=== PATIENT | male | born 1940 | race Caucasian/White ===

== ENCOUNTER 2024-12-22 01:11 | Inpatient (IN) ==
[2024-12-22 01:30] LABS: Hemoglobin 10.3 g/dl (14.0-18.0); Mean Corpuscular Hemoglobin 29.3 pg (25.0-34.0); Mean Corpuscular Hgb Conc 32.2 g/dL (32.0-36.0); Mean Corpuscular Volume 91.2 fL (80.0-100.0); Mean Platelet Volume 9.6 fL (9.4-12.4); Platelet Count 213 K/uL (130-400); RDW Coefficient of Variation 13.2 % (11.5-14.5); RDW Standard Deviation 44.5 fL (36.4-46.3); Red Blood Count 3.51 M/uL (4.70-6.10); White Blood Count 3.84 K/ul (4.8-10.8)
[2024-12-22 01:41] LABS: D Dimer 300 ug/L FEU (0-500); Prothrombin Time 10.9 Seconds (9.0-12.0)
[2024-12-22 01:51] LABS: ALC (manual) 1.69 K/uL (1.2-3.4); ANC (manual) 1.77 K/uL (1.4-6.5); Albumin Level 3.8 gm/dl (3.4-5.0); Basophils # (manual) 0.04 K/uL (0-0.2); Basophils % (manual) 1 %; Bilirubin,Total 0.3 mg/dl (0.2-1.0); Calcium 8.5 mg/dl (8.6-10.3); Eosinophils # (manual) 0.08 K/uL (0-0.50); Eosinophils % (manual) 2 %; Lymphocytes # (manual) 1.69 K/uL (1.2-3.4); Lymphocytes % (manual) 44 %; Magnesium 1.7 mg/dl (1.7-2.4); Monocytes # (manual) 0.27 K/uL (0.11-0.59); Monocytes % (manual) 7 %; Neutrophils # (manual) 1.77 K/uL (1.40-6.50); Neutrophils % (manual) 46 %; Potassium 4.2 mmol/L (3.5-5.1); RBC Morphology Unremarkable
[2024-12-22 01:57] LABS: Albumin Globulin Ratio 1.2 (0.9-2); BUN Creatinine Ratio 14.3 (10-20); Creatinine Clr Calc Pharmacy 39.1 ml/min; Globulin 3.3 gm/dl (2.5-4.0); Total Protein 7.1 gm/dl (6.0-8.3)
[2024-12-22 02:01] LABS: Troponin I High Sensitivity 5.7 pg/ml (0-20)
[2024-12-22 02:10] LABS: Thyroid Stimulating Hormone 3.14 uIu/ml (0.300-4.500)
[2024-12-22] MEDS: PANTOprazole 40 MG/10 ML SYR IV ONE (02:17)
[2024-12-22] MEDS: SODIUM CHLORIDE 0.9% 1,000 ML IV SCH (02:17)
[2024-12-22] MEDS: MAGNESIUM SULFATE / D5W 1 GM/100 ML BAG IV STA (02:17)
--- NOTE | 2024-12-22 02:39 | XRay Report ---
EXAM: XR chest 1V portable CLINICAL HISTORY: cp TECHNIQUE: Radiograph of chest was acquired. COMPARISON: none FINDINGS: Blunting of bilateral costophrenic angle. Area of consolidation in right lower zone. The cardiomediastinal silhouette is within normal limits. No acute osseous abnormality. IMPRESSION: 1. Blunting of bilateral costophrenic angle- Findings suggestive of pleural effusion. 2. Area of consolidation in right lower zone. Findings suggestive of infective etiology / changes of pulmonary edema. Suggested clinical/lab correlation/further evaluation with CT chest. Electronically signed by Jose Cruz Liang 12-22-2024 02:38 AM
--- NOTE | 2024-12-22 03:22 | Emergency Department Note ---
Impression & Plan Chest pain, Pleural effusion, Dyspnea ED Provider Note ED Provider Note NAME: MEMO MEJIA AGE:84 SEX: Male : 1940 ARRIVES VIA: EMS INFORMANT: Patient ED PROVIDER(s): Vale Luke DO CHIEF COMPLAINT: Chest pain HPI: This is an 84-year-old male brought in by EMS due to concern for chest pain. Patient states has been having intermittent chest pain for many months. He states that is typically central and slightly left-sided. He states it does not radiate into the upper extremities, back, or neck. He states he does have accompanying difficulty breathing. He denies abdominal pain, vomiting, numbness or tingling, dizziness, fevers, or URI symptoms. He denies any recent heartburn/GERD. He denies any recent leg swelling. He denies any travel, sick contacts, or change in medications. He denies any history of heart or lung problems. PAST MEDICAL HISTORY:See Below PAST SURGICAL HISTORY:See Below FAMILY HISTORY:See Below SOCIAL HISTORY:See Below HOME MEDICATIONS:See Below ALLERGIES:See Below VITALS:See Below PHYSICAL EXAMINATION: GENERAL: alert, well appearing, well nourished, no distress, non-toxic EYE EXAM: normal conjunctiva, PERRL and EOM's grossly intact OROPHARYNX: no exudate, no erythema, lips, buccal mucosa, and tongue normal and mucous membranes are moist NECK: supple, no nuchal rigidity, no adenopathy, non-tender LUNGS: Clear to auscultation. Normal chest wall mechanics, no w/r/r HEART: no murmurs, S1 normal and S2 normal ABDOMEN: abdomen soft, non-tender, normo-active bowel sounds, no masses, no rebound or guarding. BACK: Back is symmetrical on inspection and there is no deformity, no midline tenderness, no CVA tenderness. SKIN: no rashes, petechiae, orbruising UPPER EXTREMITIES: upper extremities are grossly normal. FROM, nml pulses b/l. LOWER EXTREMITIES: No pitting edema. FROM, nml pulses b/l. Erythema noted to the distal last of the right great toe NEURO EXAM: Normal sensorium, cranial nerves II-XII grossly intact, normal speech, no facial droop,nogross weakness of arms, no gross weakness of legs. Gross sensation intact. No ataxia. Vital Signs: reviewed and remarkable Differential Diagnosis: acute coronary syndrome, pericarditis, pulmonary embolus, aortic dissection, pneumonia, pneumothorax, musculoskeletal pain, shingles, GERD, GI bleed, as well as others were considered MEDICAL DECISION MAKING: This is an 84 yo male who presents to the ER c/o chest pain and dyspnea. He was afebrile and VS stable on arrival. Labs drawn and sent, IV established, EKG and CXR performed and interpreted at bedside, and patient placed on telemetry. Given atypical cxr, patient sent for CT chest additionally and nasal swab for viral panel obtained. Procal added additionally. Mild leukopenia noted and anemia. Troponin negative and dimer negative. Patient denies any pulmonary hx. No recent illness and viral panel negative. Given unclear etiology of pleural effusion seen on CT with symptoms reported we discussed further inpatient evaluation, patient and son in agreement. Case discussed with hospitalist team for additional evaluation and mgmt. Consultation(s): 0508: Discussed with Dr. Saleh, [facility] hospitalist team, for additional evaluation and management. ER Treatment Provided: See below 0445: Discussed with son now at bedside. Diagnostics Interpreted By Me: -ECG: Normal sinus at 79, normal axis, normal intervals, no acute ST/T wave changes -Cardiac Monitoring: An order was placed for continuous cardiac monitoring. The monitor shows a rate of 72 with normal sinus rhythm. -Laboratory studies: As stated above and show below. -Imaging studies: X-ray Chest: A single view study of the chest was reviewed and was negative for cardiomegaly, focal infiltrate, effusion, pulmonary edema, or wide mediastinum. Triage Nursing Note Reviewed Prior/Outside Records Reviewed Past Med/Surg History Problem List (Updated 12/24/24 @ 03:48 by Vale Luke DO) Dyspnea (Acute) Pneumothorax, right Loculated pleural effusion Osteoarthritis Iron deficiency anemia Pleuritic chest pain Bilateral pleural effusion Pleural effusion (Acute) Chest pain (Acute) No known health problems (Acute) Alcohol intoxication (Acute) Alcohol intoxication (Acute) Change in mental status (Acute) Social History Smoking Status: Never smoker Hx Alcohol Use: No Hx Substance Use: No Preferred Language: Mongolian Communication Ability: Effective 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 Current Living Situation: [facility] Feels Safe at Home: Yes Assistive Devices: Walker and Wheelchair Allergies Allergies Allergy/AdvReac Type Severity Reaction Status Date / Time aspirin Allergy Unknown ON Verified 12/22/24 01:57 [facility] MED LIST Home Meds Home Medications Medication Instructions Recorded Confirmed acetaminophen 325 mg tablet 650 mg PO Q4H PRN PAIN/FEVER 12/22/24 12/22/24 (Tylenol) cyanocobalamin (vitamin B-12) 1,000 mcg PO DAILY 12/22/24 12/22/24 1,000 mcg tablet (Vitamin B-12) folic acid 1 mg tablet 1 mg PO DAILY 12/22/24 12/22/24 loperamide 2 mg capsule 2 mg PO Q8H PRN Diarrhea 12/22/24 12/22/24 magnesium hydroxide 400 mg/5 mL 30 ml PO DAILY PRN Constipation 12/22/24 12/22/24 oral suspension (Milk of Magnesia) mirtazapine 7.5 mg tablet 7.5 mg PO HS 12/22/24 12/22/24 sennosides 8.6 mg-docusate sodium 1 tab-cap PO 3XWK 12/22/24 12/22/24 50 mg tablet (Senexon-S) sertraline 100 mg tablet 100 mg PO DAILY 12/22/24 12/22/24 sertraline 50 mg tablet 50 mg PO DAILY 12/22/24 12/22/24 Results & Data (ED) Vital Signs Vital Signs - 24 hr 12/22/24 01:18 12/22/24 01:20 12/22/24 01:21 Temperature 37 C Temperature Source Oral Pulse Rate 77 70 78 Pulse Rate from SpO2 Sensor 75 Respiratory Rate 19 19 Respiratory Effort / Characteristics Non-Labored Spontaneous Respiratory Depth Normal Respiratory Pattern Regular Blood Pressure 127/67 124/64 Blood Pressure Mean 87 84 Pulse Oximetry 95 95 Oxygen Delivery Method Room Air Room Air Sepsis Recent Fever Within 48 Hours No Sepsis New/Unexplained Change in Mental Status No Sepsis Action Taken by Nursing No Action Required 12/22/24 01:30 12/22/24 02:00 12/22/24 02:30 Temperature Temperature Source Pulse Rate 76 77 80 Pulse Rate from SpO2 Sensor 74 79 Respiratory Rate 20 19 17 Respiratory Effort / Characteristics Respiratory Depth Respiratory Pattern Blood Pressure 127/54 L 120/56 L 118/61 Blood Pressure Mean 86 80 83 Pulse Oximetry 93 94 90 Oxygen Delivery Method Room Air Room Air Room Air Sepsis Recent Fever Within 48 Hours Sepsis New/Unexplained Change in Mental Status Sepsis Action Taken by Nursing 12/22/24 03:12 12/22/24 03:45 12/22/24 04:00 Temperature Temperature Source Pulse Rate 69 83 74 Pulse Rate from SpO2 Sensor 71 85 Respiratory Rate 20 18 18 Respiratory Effort / Characteristics Respiratory Depth Respiratory Pattern Blood Pressure 131/88 120/59 L Blood Pressure Mean 102 75 Pulse Oximetry 91 93 93 Oxygen Delivery Method Room Air Room Air Room Air Sepsis Recent Fever Within 48 Hours Sepsis New/Unexplained Change in Mental Status Sepsis Action Taken by Nursing 12/22/24 04:30 12/22/24 05:00 12/22/24 05:13 Temperature Temperature Source Pulse Rate 75 72 72 Pulse Rate from SpO2 Sensor 77 72 Respiratory Rate 18 18 Respiratory Effort / Characteristics Respiratory Depth Respiratory Pattern Blood Pressure 118/58 L 126/61 Blood Pressure Mean 78 82 Pulse Oximetry 93 93 Oxygen Delivery Method Room Air Room Air Sepsis Recent Fever Within 48 Hours Sepsis New/Unexplained Change in Mental Status Sepsis Action Taken by Nursing 12/22/24 07:00 12/22/24 07:00 Temperature Temperature Source Pulse Rate 74 Pulse Rate from SpO2 Sensor 74 Respiratory Rate 24 Respiratory Effort / Characteristics Respiratory Depth Respiratory Pattern Blood Pressure 133/63 Blood Pressure Mean 95 Pulse Oximetry 94 Oxygen Delivery Method Sepsis Recent Fever Within 48 Hours Sepsis New/Unexplained Change in Mental Status Sepsis Action Taken by Nursing Laboratory Data 12/23/24 06:00 12/23/24 06:00 Lab Results 12/22/24 12/22/24 12/22/24 Range/Units 01:17 03:54 03:57 WBC 3.84 L (4.8-10.8) K/ul RBC 3.51 L (4.70-6.10) M/uL Hgb 10.3 L (14.0-18.0) g/dl Hct 32.0 L (42.0-52.0) % MCV 91.2 (80.0-100.0) fL MCH 29.3 (25.0-34.0) pg MCHC 32.2 (32.0-36.0) g/dL RDW Std Deviation 44.5 (36.4-46.3) fL RDW Coeff of Kyleigh 13.2 (11.5-14.5) % Plt Count 213 (130-400) K/uL MPV 9.6 (9.4-12.4) fL Neutrophils % (Manual) 46 % Lymphocytes % (Manual) 44 % Monocytes % (Manual) 7 % Eosinophils % (Manual) 2 % Basophils % (Manual) 1 % Neutrophils # (Manual) 1.77 (1.40-6.50) K/uL Total Absolute Neuts 1.77 (1.4-6.5) K/uL Lymphocytes # (Manual) 1.69 (1.2-3.4) K/uL Total Abs Lymphocytes 1.69 (1.2-3.4) K/uL Monocytes # (Manual) 0.27 (0.11-0.59) K/uL Eosinophils # (Manual) 0.08 (0-0.50) K/uL Basophils # (Manual) 0.04 (0-0.2) K/uL RBC Morphology Unremarkable Peripher Smr Path Cons PT 10.9 (9.0-12.0) Seconds INR 1.0 (0.9-1.1) D-Dimer 300 (0-500) ug/L FEU Sodium 136 (136-145) mmol/L Potassium 4.2 (3.5-5.1) mmol/L Chloride 103 (98-107) mmol/L Carbon Dioxide 29 (21-32) mmol/L Anion Gap 4 (3-11) BUN 15 (6-23) mg/dl Creatinine 1.05 (0.6-1.4) mg/dl Est Cr Clr Drug Dosing 39.1 ml/min eGFR 69.56 BUN/Creatinine Ratio 14.3 (10-20) Glucose 94 (70-99(Fasting)) mg/dl Calcium 8.5 L (8.6-10.3) mg/dl Magnesium 1.7 (1.7-2.4) mg/dl Total Bilirubin 0.3 (0.2-1.0) mg/dl AST 15 (13-39) U/L ALT 7 (7-52) U/L Alkaline Phosphatase 82 (34-104) U/L Troponin I High Sens 5.7 3.8 (0-20) pg/ml B-Natriuretic Peptide 30 (0-100) pg/ml Total Protein 7.1 (6.0-8.3) gm/dl Albumin 3.8 (3.4-5.0) gm/dl Globulin 3.3 (2.5-4.0) gm/dl Albumin/Globulin Ratio 1.2 (0.9-2) Lipase 16 (11-82) U/L Vitamin B12 1436 H (180-914) pg/ml Folate > 22.30 (>5.38) ng/ml Procalcitonin 0.02 (0-0.5) ng/ml TSH 3.140 (0.300-4.500) uIu/ml Ethyl Alcohol mg/dL < 10.0 (<10.0) mg/dl Adenovirus (PCR) Not Detected (NotDetected) B. pertussis DNA (PCR) Not Detected (NotDetected) B.parapertussis DNA PCR Not Detected (NotDetected) C. pneumoniae DNA (PCR) Not Detected (NotDetected) Coronavirus OC43 (PCR) Not Detected (NotDetected) Coronavirus HKU1 (PCR) Not Detected (NotDetected) Coronavirus 229E (PCR) Not Detected (NotDetected) SARS-CoV-2 (PCR) Not Detected (NotDetected) Coronavirus NL63 (PCR) Not Detected (NotDetected) Human Metapneumovir PCR Not Detected (NotDetected) Influenza Type A (PCR) Not Detected (NotDetected) Influenza Type B (PCR) Not Detected (NotDetected) M. pneumoniae (PCR) Not Detected (NotDetected) Parainfluenza 1 (PCR) Not Detected (NotDetected) Parainfluenza 2 (PCR) Not Detected (NotDetected) Parainfluenza 3 (PCR) Not Detected (NotDetected) Parainfluenza 4 (PCR) Not Detected (NotDetected) RSV (PCR) Not Detected (NotDetected) Entero/Rhino (PCR) Not Detected (NotDetected) Administered Medications Acetaminophen (Acetaminophen 325 Mg Tab) 650 mg PO Q4H PRN PRN Reason: Pain or Fever Stop: 01/21/25 09:31 Last Admin: 12/22/24 11:06 Dose: 650 mg Documented By: ALEJANDRA Cyanocobalamin (Cyanocobalamin (B-12) 500 Mcg Tablet) 1,000 mcg PO DAILY AMANDA Stop: 01/21/25 09:31 Last Admin: 12/23/24 07:19 Dose: 1,000 mcg Documented By: Admin: 12/22/24 11:07 Dose: 1,000 mcg Documented By: ALEJANDRA Folic Acid (Folic Acid 1 Mg Tab) 1 mg PO DAILY AMANDA Stop: 01/21/25 09:31 Last Admin: 12/23/24 07:20 Dose: 1 mg Documented By: Admin: 12/22/24 11:08 Dose: 1 mg Documented By: ALEJANDRA Heparin Sodium (Porcine) (Heparin Sod 5,000 Unit/0.5 Ml Vial) 5,000 units SQ Q8 AMANDA Stop: 01/21/25 13:59 Last Admin: 12/24/24 02:03 Dose: 5,000 units Documented By: Admin: 12/23/24 13:10 Dose: 5,000 units Documented By: Admin: 12/23/24 05:44 Dose: 5,000 units Documented By: Admin: 12/22/24 20:09 Dose: 5,000 units Documented By: Admin: 12/22/24 13:06 Dose: Not Given Documented By: ALEJANDRA Ampicillin Sodium/Sulbactam Sodium (Unasyn) 3,000 mg in 100 mls @ 200 mls/hr IV Q6H AMANDA Stop: 12/27/24 09:59 Last Infusion: 12/24/24 00:07 Dose: Infused Documented By: Admin: 12/23/24 22:56 Dose: 200 mls/hr Documented By: Infusion: 12/23/24 17:43 Dose: Infused Documented By: Admin: 12/23/24 16:59 Dose: 200 mls/hr Documented By: Infusion: 12/23/24 10:47 Dose: Infused Documented By: Admin: 12/23/24 10:06 Dose: 200 mls/hr Documented By: Infusion: 12/23/24 04:56 Dose: Infused Documented By: Admin: 12/23/24 04:20 Dose: 200 mls/hr Documented By: Infusion: 12/22/24 20:39 Dose: Infused Documented By: Admin: 12/22/24 20:09 Dose: 200 mls/hr Documented By: Infusion: 12/22/24 16:54 Dose: Infused Documented By: Admin: 12/22/24 16:10 Dose: 200 mls/hr Documented By: Infusion: 12/22/24 11:47 Dose: Infused Documented By: Admin: 12/22/24 11:07 Dose: 200 mls/hr Documented By: ALEJANDRA Mirtazapine (Mirtazapine Tab 15 Mg Tab) 7.5 mg PO HS AMANDA Stop: 01/21/25 20:59 Last Admin: 12/23/24 22:57 Dose: 7.5 mg Documented By: Admin: 12/22/24 20:09 Dose: 7.5 mg Documented By: LAUREN Senna/Docusate Sodium (Docusate Sodium/Senna 50/8.6mg Tab) 1 tab PO MoWeFr@0900 AMANDA Stop: 01/21/25 09:31 Last Admin: 12/22/24 11:08 Dose: Not Given Documented By: ALEJANDRA Sertraline HCl (Sertraline Hcl 100 Mg Tablet) 100 mg PO DAILY AMANDA Stop: 01/21/25 09:31 Last Admin: 12/23/24 07:20 Dose: 100 mg Documented By: Admin: 12/22/24 11:08 Dose: 100 mg Documented By: ALEJANDRA Sertraline HCl (Sertraline Hcl 50 Mg Tablet) 50 mg PO DAILY AMANDA Stop: 01/21/25 09:31 Last Admin: 12/23/24 07:20 Dose: 50 mg Documented By: Admin: 12/22/24 11:08 Dose: 50 mg Documented By: ALEJANDRA Discontinued Medications Sodium Chloride (Nss) 1,000 mls @ 125 mls/hr IV .Q8H AMANDA Stop: 12/23/24 01:29 Last Admin: 12/22/24 09:35 Dose: Not Given Documented By: Infusion: 12/22/24 09:32 Dose: Infused Documented By: Admin: 12/22/24 02:17 Dose: 125 mls/hr Documented By: TYSON Pantoprazole Sodium (Protonix) 40 mg in 10 mls @ 5 mls/min IV NOW ONE Stop: 12/22/24 01:21 Last Admin: 12/22/24 02:17 Dose: 5 mls/min Documented By: TYSON Magnesium Sulfate/Dextrose (Magnesium Sulfate / D5w) 1 gm in 100 mls @ 100 mls/hr IV NOW STA Stop: 12/22/24 02:56 Last Infusion: 12/22/24 03:25 Dose: Infused Documented By: Admin: 12/22/24 02:17 Dose: 100 mls/hr Documented By: TYSON Ioversol (Optiray 320 100ml) 93 ml IV ONCE ONE Stop: 12/22/24 03:35 Last Admin: 12/22/24 03:34 Dose: 93 ml Documented By: ARJUN Ioversol (Optiray 320 100ml) 94 ml IV ONCE ONE Stop: 12/22/24 13:53 Last Admin: 12/22/24 13:53 Dose: 94 ml Documented By: RAFAL Imaging Data Radiologist's Impression: Chest X-Ray 12/22/24 01:20 EXAM: XR chest 1V portable CLINICAL HISTORY: cp TECHNIQUE: Radiograph of chest was acquired. COMPARISON: none FINDINGS: Blunting of bilateral costophrenic angle. Area of consolidation in right lower zone. The cardiomediastinal silhouette is within normal limits. No acute osseous abnormality. IMPRESSION: 1. Blunting of bilateral costophrenic angle- Findings suggestive of pleural effusion. 2. Area of consolidation in right lower zone. Findings suggestive of infective etiology / changes of pulmonary edema. Suggested clinical/lab correlation/further evaluation with CT chest. Electronically signed by Jose Cruz Liang 12-22-2024 02:[address] 12/22/24 03:22 EXAM: CT chest diagnostic w con CLINICAL HISTORY: abn cxr, chest pain TECHNIQUE: Contiguous axial images were obtained from the neck base through the upper abdomen following intravenous administration of contrast material. If IV contrast material had not been administered, the likelihood of detecting abnormalities relevant to the patient's condition would have been substantially decreased. In addition, sagittal and coronal reconstructions were performed. CT scan was performed according to ALARA (as low as reasonable achievable). COMPARISON: None. FINDINGS: Mild to moderate right sided pleural effusion (likely loculated) with intrafissural extension with passive subsegmental collapse of right lower lobe is seen. Minimal left sided pleural effusion with passive subsegmental collapse of left lower lobe. Multiple tiny scattered nodules (2-4 mm sized)are noted involving both lungs Few right paratracheal and perihilar lymph node are seen. Rest of lungs are clear The central airways are patent. No pneumothorax is seen. No axillary, hilar, or mediastinal adenopathy is identified. The visualized thyroid is unremarkable. The heart, aorta, and pulmonary arteries are of normal size and configuration. No pericardial effusion is identified. Imaged portions of the upper abdomen are unremarkable. No aggressive appearing osseous lesions are identified. IMPRESSION: 1. Mild to moderate right sided pleural effusion (likely loculated) with intrafissural extension with passive subsegmental collapse of right lower lobe is seen. 2. Minimal left sided pleural effusion with passive subsegmental collapse of left lower lobe. 3. Few tiny scattered nodules (2-4 mm sized)are noted involving both lungs- follow up suggested 4. Few right paratracheal and perihilar lymph node are seen. Electronically signed by Jose Cruz Liang 12-22-2024 04:29 AM Discharge Plan Visit Data Chief Complaint: Cardiac Assessment Stated Complaint: CHEST PAIN, WORSENS WHEN WORRIED ABOUT ED Provider: Vale Luke Discharge Problem: Chest pain, Pleural effusion, Dyspnea Patient Disposition: Admitted As Inpatient Condition: Good Discharge Instructions Interventions: ED Discharge Assessment Last Done: 12/22/24 13:47
[2024-12-22] MEDS: OPTIRAY 320 100ml IV ONE ×2 (03:34→13:53)
--- NOTE | 2024-12-22 04:29 | CT Scan Report ---
EXAM: CT chest diagnostic w con CLINICAL HISTORY: abn cxr, chest pain TECHNIQUE: Contiguous axial images were obtained from the neck base through the upper abdomen following intravenous administration of contrast material. If IV contrast material had not been administered, the likelihood of detecting abnormalities relevant to the patient's condition would have been substantially decreased. In addition, sagittal and coronal reconstructions were performed. CT scan was performed according to ALARA (as low as reasonable achievable). COMPARISON: None. FINDINGS: Mild to moderate right sided pleural effusion (likely loculated) with intrafissural extension with passive subsegmental collapse of right lower lobe is seen. Minimal left sided pleural effusion with passive subsegmental collapse of left lower lobe. Multiple tiny scattered nodules (2-4 mm sized)are noted involving both lungs Few right paratracheal and perihilar lymph node are seen. Rest of lungs are clear The central airways are patent. No pneumothorax is seen. No axillary, hilar, or mediastinal adenopathy is identified. The visualized thyroid is unremarkable. The heart, aorta, and pulmonary arteries are of normal size and configuration. No pericardial effusion is identified. Imaged portions of the upper abdomen are unremarkable. No aggressive appearing osseous lesions are identified. IMPRESSION: 1. Mild to moderate right sided pleural effusion (likely loculated) with intrafissural extension with passive subsegmental collapse of right lower lobe is seen. 2. Minimal left sided pleural effusion with passive subsegmental collapse of left lower lobe. 3. Few tiny scattered nodules (2-4 mm sized)are noted involving both lungs- follow up suggested 4. Few right paratracheal and perihilar lymph node are seen. Electronically signed by Jose Cruz Liang 12-22-2024 04:29 AM
[2024-12-22 04:54] LABS: Adenovirus PCR Not Detected (NotDetected); Bordetella parapertussis PCR Not Detected (NotDetected); Bordetella pertussis PCR Not Detected (NotDetected); Chlamydia pneumoniae PCR Not Detected (NotDetected); Coronavirus 229E PCR Not Detected (NotDetected); Coronavirus CoV-2 (COVID19)PCR Not Detected (NotDetected); Coronavirus HKU1 PCR Not Detected (NotDetected); Coronavirus NL63 PCR Not Detected (NotDetected); Coronavirus OC43PCR Not Detected (NotDetected); Human Metapneumovirus PCR Not Detected (NotDetected); Influenza A PCR Not Detected (NotDetected); Influenza B PCR Not Detected (NotDetected); Mycoplasma pneumoniae PCR Not Detected (NotDetected); Parainfluenza Virus 1 PCR Not Detected (NotDetected); Parainfluenza Virus 2 PCR Not Detected (NotDetected); Parainfluenza Virus 3 PCR Not Detected (NotDetected); Parainfluenza Virus 4 PCR Not Detected (NotDetected); Respiratory Syncytial VirusPCR Not Detected (NotDetected); Rhinovirus/Enterovirus PCR Not Detected (NotDetected)
--- NOTE | 2024-12-22 06:12 | History & Physical Report ---
Date of Service December 22, 2024 Assessment & Plan (1) Chest pain: Plan: 84-year-old male with past medical history significant for depression who lives at [facility] and is wheelchair-bound for several years was brought in because of complaint of chest pain and shortness of breath. Currently patient seems poor historian. He says he has pain in the abdomen. Says it is hurting to speak. Complains of shortness of breath. Complains of pain in the right big toe. Could tell his name. Knows that he is in the [place]. Could not tell current month. Could tell his age. Patient states he is thirsty and wants to drink. But difficult to get history from the patient as saying that it is hurting to talk and could not get much history from the patient. Son left to home but able to call him. As per son patient complaining of chest pain for las t couple of days. And also shortness of breath. No fevers. No nausea. Normal bowel and bladder movements. As per son no history of heart disease. No history of kidney disease. No history of high blood pressure or diabetes. No dementia as per son.Currently patient hemodynamics are okay. Chest pain EKG no acute findings. 2 sets of troponin negative. D-dimer negative. Will follow serial cardiac enzymes and echo Monitor on telemetry Cardiac consult Right pleural effusion Shortness of breath Respiratory BioFire negative CT chest shows mild to moderate right-sided pleural effusion likely loculated with intrafissural extension with passive subsegmental collapse of the right lower lobe. Minimal left sided pleural effusion with subsegmental collapse of the left lower lobe. 2-4 moderate-sized nodules seen Empiric Unasyn Will follow echo Pulmonary consult for further recommendation Abdominal pain LFTs okay, lipase okay Will follow CT of the pelvis Anemia and leukopenia Do not have baseline labs Will check stool for Hemoccult Iron studies, vitamin B12 folate levels Peripheral smear Follow repeat labs right big toe pain will follow xray and uric acid levels Depression Continue home meds DVT prophylaxis SCDs for now Disposition Telemetry Full code. History of Present Illness Chief Complaint: Chest pain and shortness of breath Primary Care Provider: Nathan Valdez 84-year-old male with past medical history significant for depression who lives at [facility] and is wheelchair-bound for several years was brought in because of complaint of chest pain and shortness of breath. Currently patient seems poor historian. He says he has pain in the abdomen. Says it is hurting to speak. Complains of shortness of breath. Complains of pain in the right big toe. Could tell his name. Knows that he is in the [place]. Could not tell current month. Could tell his age. Patient states he is thirsty and wants to drink. But difficult to get history from the patient as saying that it is hurting to talk and could not get much history from the patient. Son left to home but able to call him. As per son patient complaining of chest pain for last couple of days. And also shortness of breath. No fevers. No nausea. Normal bowel and bladder movements. As per son no history of heart disease. No history of kidney disease. No history of high blood pressure or diabetes. No dementia as per son.Currently patient hemodynamics are okay. Past medical history. As mentioned above Past surgical history. None as per son. Social history. No smoking. History drink alcohol in the past but currently drinks once a week. Family history. Mother had colon cancer. Uncle had prostate cancer. Allergies Allergy/AdvReac Type Severity Reaction Status Date / Time aspirin Allergy Unknown ON Verified 12/22/24 01:57 [facility] LIST Home Medications Medication Instructions Recorded Confirmed Type acetaminophen 325 mg tablet 650 mg PO Q4H PRN PAIN/FEVER 12/22/24 12/22/24 History (Tylenol) cyanocobalamin (vitamin B-12) 1,000 mcg PO DAILY 12/22/24 12/22/24 History 1,000 mcg tablet (Vitamin B-12) folic acid 1 mg tablet 1 mg PO DAILY 12/22/24 12/22/24 History loperamide 2 mg capsule 2 mg PO Q8H PRN Diarrhea 12/22/24 12/22/24 History magnesium hydroxide 400 mg/5 mL 30 ml PO DAILY PRN Constipation 12/22/24 12/22/24 History oral suspension (Milk of Magnesia) mirtazapine 7.5 mg tablet 7.5 mg PO HS 12/22/24 12/22/24 History sennosides 8.6 mg-docusate sodium 1 tab-cap PO 3XWK 12/22/24 12/22/24 History 50 mg tablet (Senexon-S) sertraline 100 mg tablet 100 mg PO DAILY 12/22/24 12/22/24 History sertraline 50 mg tablet 50 mg PO DAILY 12/22/24 12/22/24 History Past Med/Surg History Problem List (Updated 12/22/24 @ 05:32 by Vale Luke, DO) Pleural effusion (Acute) Chest pain (Acute) No known health problems (Acute) Alcohol intoxication (Acute) Alcohol intoxication (Acute) Change in mental status (Acute) Social History Preferred Language: Yi Feels Safe at Home: Yes Review of Systems Review of Systems: Other Poor historian. States hurting to speak .. Physical Exam Physical Exam: General- Not in acute distress. Head- atraumatic Eyes- PERRL. ENT- oropharynx clear Neck- supple, no JVD. Lungs- clear to auscultation no wheezing. mild bibasilar crackles Heart- regular rhythm; no murmur, no gallop. Abdomen- normal bowel sounds, soft, diffuse discomfort, no distension Extremities- no pretibial edema, right bid toe mild erythema Neuro- alert, oriented x 2; PERRL, no facial palsy; no dysarthria; Results & Data Results & Data Vital Signs (Past 12 Hours) Vital Signs Temp Pulse Resp BP Pulse Ox O2 Del Method 12/22/24 05:13 72 12/22/24 05:00 72 18 126/61 93 Room Air 12/22/24 04:30 75 18 118/58 L 93 Room Air 12/22/24 04:00 74 18 120/59 L 93 Room Air 12/22/24 03:45 83 18 131/88 93 Room Air 12/22/24 03:12 69 20 91 Room Air 12/22/24 02:30 80 17 118/61 90 Room Air 12/22/24 02:00 77 19 120/56 L 94 Room Air 12/22/24 01:30 76 20 127/54 L 93 Room Air 12/22/24 01:21 78 19 124/64 95 Room Air 12/22/24 01:20 37 C 70 19 127/67 95 Room Air 12/22/24 01:18 77 Diagnostic Findings Laboratory Results WBC 3.84 K/ul (4.8-10.8) L 12/22/24 01:17 RBC 3.51 M/uL (4.70-6.10) L 12/22/24 01:17 Hgb 10.3 g/dl (14.0-18.0) L 12/22/24 01:17 Hct 32.0 % (42.0-52.0) L 12/22/24 01:17 MCV 91.2 fL (80.0-100.0) 12/22/24 01:17 MCH 29.3 pg (25.0-34.0) 12/22/24 01:17 MCHC 32.2 g/dL (32.0-36.0) 12/22/24 01:17 RDW Std Deviation 44.5 fL (36.4-46.3) 12/22/24 01: RDW Coeff of Kyleigh 13.2 % (11.5-14.5) 12/22/24 01:17 Plt Count 213 K/uL (130-400) 12/22/24 01:17 MPV 9.6 fL (9.4-12.4) 12/22/24 01:17 Neutrophils % (Manual) 46 % 12/22/24 01:17 Lymphocytes % (Manual) 44 % 12/22/24 01:17 Monocytes % (Manual) 7 % 12/22/24 01:17 Eosinophils % (Manual) 2 % 12/22/24 01:17 Basophils % (Manual) 1 % 12/22/24 01:17 Neutrophils # (Manual) 1.77 K/uL (1.40-6.50) 12/22/24 01:17 Total Absolute Neuts 1.77 K/uL (1.4-6.5) 12/22/24 01:17 Lymphocytes # (Manual) 1.69 K/uL (1.2-3.4) 12/22/24 01:17 Total Abs Lymphocytes 1.69 K/uL (1.2-3.4) 12/22/24 01:17 Monocytes # (Manual) 0.27 K/uL (0.11-0.59) 12/22/24 01:17 Eosinophils # (Manual) 0.08 K/uL (0-0.50) 12/22/24 01:17 Basophils # (Manual) 0.04 K/uL (0-0.2) 12/22/24 01:17 RBC Morphology Unremarkable 12/22/24 01:17 PT 10.9 Seconds (9.0-12.0) 12/22/24 01:17 INR 1.0 (0.9-1.1) 12/22/24 01:17 D-Dimer 300 ug/L FEU (0-500) 12/22/24 01:17 Sodium 136 mmol/L (136-145) 12/22/24 01:17 Potassium 4.2 mmol/L (3.5-5.1) 12/22/24 01:17 Chloride 103 mmol/L (98-107) 12/22/24 01:17 Carbon Dioxide 29 mmol/L (21-32) 12/22/24 01:17 Anion Gap 4 (3-11) 12/22/24 01:17 BUN 15 mg/dl (6-23) 12/22/24 01:17 Creatinine 1.05 mg/dl (0.6-1.4) 12/22/24 01:17 Est Cr Clr Drug Dosing 39.1 ml/min 12/22/24 01:17 eGFR 69.56 12/22/24 01:17 BUN/Creatinine Ratio 14.3 (10-20) 12/22/24 01:17 Glucose 94 mg/dl (70-99(Fasting)) 12/22/24 01:17 Calcium 8.5 mg/dl (8.6-10.3) L 12/22/24 01:17 Magnesium 1.7 mg/dl (1.7-2.4) 12/22/24 01:17 Total Bilirubin 0.3 mg/dl (0.2-1.0) 12/22/24 01:17 AST 15 U/L (13-39) 12/22/24 01:17 ALT 7 U/L (7-52) 12/22/24 01:17 Alkaline Phosphatase 82 U/L (34-104) 12/22/24 01:17 Troponin I High Sens 3.8 pg/ml (0-20) 12/22/24 03:54 B-Natriuretic Peptide 30 pg/ml (0-100) 12/22/24 01:17 Total Protein 7.1 gm/dl (6.0-8.3) 12/22/24 01:17 Albumin 3.8 gm/dl (3.4-5.0) 12/22/24 01:17 Globulin 3.3 gm/dl (2.5-4.0) 12/22/24 01:17 Albumin/Globulin Ratio 1.2 (0.9-2) 12/22/24 01:17 Lipase 16 U/L (11-82) 12/22/24 01:17 Procalcitonin 0.02 ng/ml (0-0.5) 12/22/24 03:54 TSH 3.140 uIu/ml (0.300-4.500) 12/22/24 01:17 Ethyl Alcohol mg/dL < 10.0 mg/dl (<10.0) 12/22/24 01:17 Adenovirus (PCR) Not Detected (NotDetected) 12/22/24 03:57 B. pertussis DNA (PCR) Not Detected (NotDetected) 12/22/24 03:57 B.parapertussis DNA PCR Not Detected (NotDetected) 12/22/24 03:57 C. pneumoniae DNA (PCR) Not Detected (NotDetected) 12/22/24 03:57 Coronavirus OC43 (PCR) Not Detected (NotDetected) 12/22/24 03:57 Coronavirus HKU1 (PCR) Not Detected (NotDetected) 12/22/24 03:57 Coronavirus 229E (PCR) Not Detected (NotDetected) 12/22/24 03:57 SARS-CoV-2 (PCR) Not Detected (NotDetected) 12/22/24 03:57 Coronavirus NL63 (PCR) Not Detected (NotDetected) 12/22/24 03:57 Human Metapneumovir PCR Not Detected (NotDetected) 12/22/24 03:57 Influenza Type A (PCR) Not Detected (NotDetected) 12/22/24 03:57 Influenza Type B (PCR) Not Detected (NotDetected) 12/22/24 03:57 M. pneumoniae (PCR) Not Detected (NotDetected) 12/22/24 03:57 Parainfluenza 1 (PCR) Not Detected (NotDetected) 12/22/24 03:57 Parainfluenza 2 (PCR) Not Detected (NotDetected) 12/22/24 03:57 Parainfluenza 3 (PCR) Not Detected (NotDetected) 12/22/24 03:57 Parainfluenza 4 (PCR) Not Detected (NotDetected) 12/22/24 03:57 RSV (PCR) Not Detected (NotDetected) 12/22/24 03:57 Entero/Rhino (PCR) Not Detected (NotDetected) 12/22/24 03:57 Impressions Chest X-Ray 12/22/24 01:20 EXAM: XR chest 1V portable CLINICAL HISTORY: cp TECHNIQUE: Radiograph of chest was acquired. COMPARISON: none FINDINGS: Blunting of bilateral costophrenic angle. Area of consolidation in right lower zone. The cardiomediastinal silhouette is within normal limits. No acute osseous abnormality. IMPRESSION: 1. Blunting of bilateral costophrenic angle- Findings suggestive of pleural effusion. 2. Area of consolidation in right lower zone. Findings suggestive of infective etiology / changes of pulmonary edema. Suggested clinical/lab correlation/further evaluation with CT chest. Electronically signed by Jose Cruz Liang 12-22-2024 02:[address] 12/22/24 03:22 EXAM: CT chest diagnostic w con CLINICAL HISTORY: abn cxr, chest pain TECHNIQUE: Contiguous axial images were obtained from the neck base through the upper abdomen following intravenous administration of contrast material. If IV contrast material had not been administered, the likelihood of detecting abnormalities relevant to the patient's condition would have been substantially decreased. In addition, sagittal and coronal reconstructions were performed. CT scan was performed according to ALARA (as low as reasonable achievable). COMPARISON: None. FINDINGS: Mild to moderate right sided pleural effusion (likely loculated) with intrafissural extension with passive subsegmental collapse of right lower lobe is seen. Minimal left sided pleural effusion with passive subsegmental collapse of left lower lobe. Multiple tiny scattered nodules (2-4 mm sized)are noted involving both lungs Few right paratracheal and perihilar lymph node are seen. Rest of lungs are clear The central airways are patent. No pneumothorax is seen. No axillary, hilar, or mediastinal adenopathy is identified. The visualized thyroid is unremarkable. The heart, aorta, and pulmonary arteries are of normal size and configuration. No pericardial effusion is identified. Imaged portions of the upper abdomen are unremarkable. No aggressive appearing osseous lesions are identified. IMPRESSION: 1. Mild to moderate right sided pleural effusion (likely loculated) with intrafissural extension with passive subsegmental collapse of right lower lobe is seen. 2. Minimal left sided pleural effusion with passive subsegmental collapse of left lower lobe. 3. Few tiny scattered nodules (2-4 mm sized)are noted involving both lungs- follow up suggested 4. Few right paratracheal and perihilar lymph node are seen. Electronically signed by Jose Cruz Liang 12-22-2024 04:29 AM ECG Additional Comments: ECG. Normal sinus rhythm with PACs at the rate of 79. Nonspecific ST abnormalities. QTc 458 Code Status & VTE Plan VTE Prophylaxis Plan VTE Prophylaxis will be ordered: Yes
--- NOTE | 2024-12-22 08:21 | Electrocardiogram Report ---
Test Reason : Blood Pressure : */* mmHG Vent. Rate : 79 BPM Atrial Rate : 79 BPM P-R Int : 128 ms QRS Dur : 86 ms QT Int : 400 ms P-R-T Axes : -10 -18 31 degrees QTcB Int : 458 ms Sinus rhythm with Premature atrial complexes Nonspecific ST abnormality Abnormal ECG When compared with ECG of 02-Apr-2014 19:55, QRS duration has decreased Nonspecific T wave abnormality now evident in Inferior leads T wave amplitude has decreased in Anterior leads Confirmed by Parminder Watson ([id number]) on 12/22/2024 8:21:06 AM Referred By: [facility] Confirmed By: Parminder Watson
[2024-12-22] MEDS ORDERED: MAGNESIUM HYDROXIDE SUSP 30 ML UDC PO PRN (09:32)
[2024-12-22] MEDS ORDERED: NITROGLYCERIN SL 0.4 MG/TAB TAB SL PRN (09:32)
[2024-12-22] MEDS ORDERED: ACETAMINOPHEN 325 MG TAB PO PRN (09:32)
[2024-12-22] MEDS ORDERED: POLYETHYLENE (MIRALAX) 17 GM PACK PO PRN (09:32)
--- NOTE | 2024-12-22 10:43 | XRay Report ---
XR foot RT min 3V routine CLINICAL HISTORY: right big toe pain COMPARISON: None FINDINGS: 4 views of the right foot demonstrate to a pronounced osteopenia. There is moderate osteoa rthritis at the first metatarsophalangeal joint. There are hammertoe deformities at digits 2, 3, and 4. There is no aggressive bone lesion or periosteal reaction identified. IMPRESSION: Severe osteopenia. Degenerative change at the first metatarsophalangeal joint. ACT 112: Negative or not required by law. Electronically signed by: Ainsley Cantu M.D. 12/22/2024 10:42 AM
[2024-12-22 11:06] LABS: Folate (Folic Acid),Ser orPlas > 22.30 ng/ml (>5.38)
[2024-12-22] MEDS: ACETAMINOPHEN 325 MG TAB PO PRN (11:06)
[2024-12-22 11:07] LABS: Vitamin B12 1436 pg/ml (180-914)
[2024-12-22] MEDS: CYANOCOBALAMIN (B-12) 500 MCG TABLET PO SCH (11:07)
[2024-12-22] MEDS: AMPICILLIN/SULBACTAM SOD 3,000 MG/100 ML BAG IV SCH (11:07)
[2024-12-22] MEDS: DOCUSATE SODIUM/SENNA 50/8.6MG TAB PO SCH (11:08)
[2024-12-22] MEDS: SERTRALINE HCL 100 MG TABLET PO SCH (11:08)
[2024-12-22] MEDS: FOLIC ACID 1 MG TAB PO SCH (11:08)
[2024-12-22] MEDS: SERTRALINE HCL 50 MG TABLET PO SCH (11:08)
[2024-12-22 11:45] LABS: Troponin I High Sensitivity 6.8 pg/ml (0-20)
[2024-12-22 11:47] LABS: Uric Acid 3.9 mg/dl (2.6-7.2)
[2024-12-22] MEDS: HEPARIN SOD 5,000 UNIT/0.5 ML VIAL SQ SCH (13:06)
--- NOTE | 2024-12-22 13:09 | Pulmonary Consultation ---
Date of Consultation December 22, 2024 Assessment & Plan (1) Loculated pleural effusion: Possible infectious/malignant in origin. Will leave the chest tube in today and repeat a chest x-ray tomorrow in light of the patient's small basilar pneumothorax which may be a pneumo ex vacuo. Continue chest tube to suction at -20 cm of water. Follow-up pleural fluid cytologies, cell counts and cultures. Continue Unasyn. BNP unremarkable. Echocardiogram reviewed with grade 1 diastolic dysfunction and a normal LVEF. Doubtful of CHF. (2) Pleuritic chest pain: Possibly related to pleural effusion. (3) Pneumothorax, right: Pneumothorax appeared status post right pigtail catheter placement. Possible pneumo ex vacuo. Plan Pulmonary will continue to follow. Thank you for the consult. History of Present Illness Reason for Consultation: Right pleural effusion Attending Physician: Froilan Singer DO History of Present Illness 84-year-old male who is a poor historian who presented from an assisted living facility due to shortness of breath and chest discomfort. Patient endorses pleurisy. He denies any shortness of breath at present. He denies any cough, fevers, chills or night sweats. Labs largely unremarkable including BNP. P atient currently on Unasyn for possible pneumonia. Chest CT obtained on admission revealed mild to moderate right-sided pleural effusion which was loculated and subsegmental collapse of the right lower lobe. Minimal left-sided pleural effusion and a few tiny scattered nodules. Patient underwent pigtail chest tube insertion in the right pleural effusion is found to have likely pneumo ex vacuo. Pleural fluid studies pending. pH normal. Allergies Allergy/AdvReac Type Severity Reaction Status Date / Time aspirin Allergy Unknown ON Verified 12/22/24 01:[facility] Home Medications Medication Instructions Recorded Confirmed Type acetaminophen 325 mg tablet 650 mg PO Q4H PRN PAIN/FEVER 12/22/24 12/22/24 History (Tylenol) cyanocobalamin (vitamin B-12) 1,000 mcg PO DAILY 12/22/24 12/22/24 History 1,000 mcg tablet (Vitamin B-12) folic acid 1 mg tablet 1 mg PO DAILY 12/22/24 12/22/24 History loperamide 2 mg capsule 2 mg PO Q8H PRN Diarrhea 12/22/24 12/22/24 History magnesium hydroxide 400 mg/5 mL 30 ml PO DAILY PRN Constipation 12/22/24 12/22/24 History oral suspension (Milk of Magnesia) mirtazapine 7.5 mg tablet 7.5 mg PO HS 12/22/24 12/22/24 History sennosides 8.6 mg-docusate sodium 1 tab-cap PO 3XWK 12/22/24 12/22/24 History 50 mg tablet (Senexon-S) sertraline 100 mg tablet 100 mg PO DAILY 12/22/24 12/22/24 History sertraline 50 mg tablet 50 mg PO DAILY 12/22/24 12/22/24 History Patient History Social History Smoking Status: Never smoker Hx Alcohol Use: No Hx Substance Use: No Preferred Language: Spanish Communication Ability: Effective Fireproof Door Maker Required: No Current Living Situation: Senior Living Feels Safe at Home: Yes Assistive Devices: Walker and Wheelchair Review of Systems Review of Systems: All systems reviewed & are unremarkable except as noted in HPI & below Physical Exam Constitutional: WD/WN, vitals as above + thin; no acute distress Neck: normal visual inspection Respiratory: no labored breathing Auscultation: + diminished lung sounds (bases b/l ) Cardiovascular: Rate/Rhythm: regular rate and regular rhythm Heart Sounds: normal S1 and normal S2; no murmur Vessels: no JVD Extremities: no edema Gastrointestinal (Abdomen): normal bowel sounds, soft, nontender, no hepatosplenomegaly Neurologic: PERRL, EOMI, accommodation nl, no face palsy, no dysarthria Psychiatric: A+Ox3, euthymic affect Results & Data Results & Data Vital Signs (Past 12 Hours) Vital Signs Temp Pulse Resp BP BP Pulse Ox O2 Del Method 12/22/24 11:32 67 12/22/24 09:45 20 156/73 H 95 Room Air 12/22/24 09:08 Room Air 12/22/24 08:30 137/70 12/22/24 08:30 74 15 94 12/22/24 08:00 135/62 12/22/24 08:00 73 24 93 12/22/24 07:36 74 16 94 12/22/24 07:30 134/63 12/22/24 07:21 76 20 92 12/22/24 07:00 133/63 12/22/24 07:00 133/63 12/22/24 07:00 74 24 94 12/22/24 05:13 72 12/22/24 05:00 72 18 126/61 93 Room Air 12/22/24 04:30 75 18 118/58 L 93 Room Air 12/22/24 04:00 74 18 120/59 L 93 Room Air 12/22/24 03:45 83 18 131/88 93 Room Air 12/22/24 03:12 69 20 91 Room Air 12/22/24 02:30 80 17 118/61 90 Room Air 12/22/24 02:00 77 19 120/56 L 94 Room Air 12/22/24 01:30 76 20 127/54 L 93 Room Air 12/22/24 01:21 78 19 124/64 95 Room Air 12/22/24 01:20 37 C 70 19 127/67 95 Room Air 12/22/24 01:18 77 PG Care Time/CCT Total # of Minutes Spent Total Time Spent with Patient: Total time spent is greater than 50% in coordination of care (as documented) at patient's floor/unit and/or counseling patient: Coding Level of Care Code 83408 INT INP/OBS CARE 255MIN Diagnoses Loculated pleural effusion J90 Pleuritic chest pain R07.81 Pneumothorax, right J93.9
--- NOTE | 2024-12-22 14:03 | XRay Report ---
XR chest 1V not portable CLINICAL HISTORY: s/p rt pleural pigtail placement COMPARISON STUDY: 12/22/2024 FINDINGS: Stable mild cardiomegaly with mild pulmonary vascular congestion. Stable hazy opacity at th e left base with blunting of the left costophrenic angle. There is an interval small bore pleural cat heter at the right base. There is mild residual stranding at the right lung base, improved. There is a faint vertical possible pleural line laterally at the right lung base, artifact versus trace right basilar pneumothorax. Stable pleural calcification in the apices. IMPRESSION: Artifact versus trace right basilar pneumothorax. If pneumothorax is present, it is like ly ex vacuo due to evacuation of the pleural fluid with failure of the abnormal right lung base to co mpletely reexpand. Suggest follow-up chest x-ray in the morning. ACT 112: Negative or not required by law. Electronically signed by: Delonte Zuniga M.D. 12/22/2024 2:01 PM
--- NOTE | 2024-12-22 14:13 | CT Scan Report ---
ABDOMEN AND PELVIS CT WITH IV CONTRAST CT DOSE: 794.93 mGy.cm HISTORY: abdominal pain TECHNIQUE: Multiaxial CT images of the abdomen and pelvis were performed following the IV administrat ion of 90 cc of Optiray, A dose lowering technique was utilized adhering to the principles of ALARA. COMPARISON STUDY: Chest x-ray and chest CT earlier today. FINDINGS: There is a very small right basilar pneumothorax with interval near resolution of the pleur al effusion, likely ex vacuo due to removal of the pleural fluid and inability of the partially atele ctatic right lower lobe to completely reexpand. There is a small left pleural effusion with mild lisa cent dependent atelectasis at the left lower lobe. ABDOMEN: Liver, gallbladder, spleen, pancreas, and adrenal glands are unremarkable. Kidneys show no h ydronephrosis. There are scattered atherosclerotic calcifications. No abdominal aortic aneurysm. Pelvis: There is contrast within the renal collecting systems, ureters, and urinary bladder. Urinary bladder is mildly distended. Prostate is mildly enlarged. There is moderate sigmoid diverticulosis. N o acute diverticulitis. There is moderate retained stool. No bowel inflammation or obstruction. No fr ee fluid, free air, or abscess. No enlarged adenopathy. Osseous structures: There is osteopenia. There are mild degenerative changes at the lumbar spine and hips. No acute osseous finding seen. IMPRESSION: 1. No acute findings at the abdomen or pelvis. 2. Very small right basilar pneumothorax, likely ex vacuo as described. Recommend follow-up chest x-r ay in the morning. 3. Otherwise as described. ACT 112: Negative or not required by law. The above report was generated using voice recognition software. It may contain grammatical, syntax o r spelling errors. Electronically signed by: Delonte Zuniga M.D. 12/22/2024 2:11 PM
--- NOTE | 2024-12-22 14:23 | Hospitalist Progress Note ---
Date of Service December 22, 2024 Assessment & Plan (1) Bilateral pleural effusion: (2) Pleuritic chest pain: (3) Iron deficiency anemia: (4) Osteoarthritis: Plan Patient presented to the emergency room with complaints of chest pain, generalized weakness and shortness of breath. Noted to have pleural effusions. Discussed with pulmonary, recommending thoracentesis with pigtail catheter through IR Communication with IR performed thoracentesis, additional studies pending Empiric antibiotics Communication with cardiology, will follow-up on their recommendations Communication with patient's son and granddaughter at bedside aware of plans for thoracentesis and ongoing testing Updated patient's findings of foot x-ray and reassured him that its osteoarthritis Recheck chest x-ray in a.m. Admission and Anticipated Discharge Date Admission Date: December 22, 2024 Subjective No acute complaints since admission. Physical Exam Physical Exam: Constitutional: Alert, nontoxic HEENT: Mucous membranes moist. Lungs: Decreased breath sounds, dullness at bases CV: S1-S2, regular Abdomen: Soft, nontender, nondistended Extremities: No significant edema Neuro: No focal deficits Psych: Cooperative, normal mood Results & Data Results & Data Vital Signs (Past 12 Hours) Vital Signs Pulse Resp BP BP Pulse Ox O2 Del Method 12/22/24 13:47 Room Air 12/22/24 13:11 Room Air 12/22/24 11:32 67 12/22/24 09:45 20 156/73 H 95 Room Air 12/22/24 09:08 Room Air 12/22/24 08:30 137/70 12/22/24 08:30 74 15 94 12/22/24 08:00 135/62 12/22/24 08:00 73 24 93 12/22/24 07:36 74 16 94 12/22/24 07:30 134/63 12/22/24 07:21 76 20 92 12/22/24 07:00 133/63 12/22/24 07:00 133/63 12/22/24 07:00 74 24 94 12/22/24 05:13 72 12/22/24 05:00 72 18 126/61 93 Room Air 12/22/24 04:30 75 18 118/58 L 93 Room Air 12/22/24 04:00 74 18 120/59 L 93 Room Air 12/22/24 03:45 83 18 131/88 93 Room Air 12/22/24 03:12 69 20 91 Room Air 12/22/24 02:30 80 17 118/61 90 Room Air Diagnostic Findings Reviewed imaging, laboratory and diagnostic studies. Pertinent findings as below. Iron studies reviewed Vitamin B12, folate normal ranges TSH 3.14 Reviewed echocardiogram: Normal ejection fraction [address] of the abdomen pelvis reviewed, no acute intra-abdominal findings, small pneumothorax from thoracentesis Reviewed foot x-ray, osteoarthritis Critical Care Time Prolonged Care Time 40
--- NOTE | 2024-12-22 14:37 | Cardiology Consultation ---
Date of Consultation December 22, 2024 Assessment & Plan (1) Pleuritic chest pain: (2) Pleural effusion: Plan Patient admitted with SOB, atypical pleuritic chest pain likely pleurisy. EKG demonstrating NSR without ischemic changes HS troponin negative x 3 since admission. Echo with preserved LVEF, no wall motion abnormalities. Small pericardial effusion. Diagnosed with b/l pleural effusions and concerns for empyema per pulm. Plans for thoracentesis with pigtail catheter placement later today. Case discussed with Dr. Tinoco I spent a total of 45 minutes on the date of service in preparation, delivery, and documentation of the care provided to this patient, excluding any time spent in the performance of separately billed services. Terese Cronin PA-C Department of Cardiology, [facility] This chart was completed in part utilizing Speech Voice Recognition Software. Grammatical errors, random word insertions, pronoun errors, and incomplete sentences are an occasional consequence of this system due to software limitations, ambient noise, and hardware issues. Any formal questions or concerns about the content, text, or information contained within the body of this dictation should be directly addressed to the provider for clarification. Supervising Physician Co-Signing Physician Notes Attending attestation: Case reviewed with the advanced practitioner. I have personally performed a history and physical examination on the patient. I have reviewed the advanced practitioner's documentation on the date of service referenced in note, and I agree with, and take responsibility for the plan of care. EKG without ischemic changes. Serial troponins negative. Echocardiogram with stable findings. Since patient had been seen by From this morning patient had undergone interval right pleural catheter placement. Please call with questions or concerns. I spent a total of 20 minutes coordinating, documenting, and providing care for this patient excluding time spent in the performance of separately billed services or time spent by another provider. Estevan Tinoco DO History of Present Illness Reason for Consultation: SOB; atypical chest pain Requesting Physician: Augusto Hospitalist Attending Physician: Dr Tinoco History of Present Illness Patient is an 84 year old male who presented to [facility] with complaints of SOB, and sharp stabbing chest/epigastric pain, worsening over the last few weeks. Patient lives part of the time in [place] and part of the time in [place]. He is a rather poor historian. He does not know his outpatient medications. He denies history of cardiovascular issues. No prior diagnosis of CAD, DC, CHF, or arrhythmia. Upon arrival to ER, ekg demonstrated NSR without acute ischemic changes. HS troponin negative x2. Found to have abnormal chest xray with b/l pleural effusions and possible collapse of the right lower lung. Pulm in to see patient at time of cardio consult, and concerns for possible empyema. Considering placement of pigtail catheter. At time of consult, patient reports ongoing SOB with pleuritic chest pain. Pain located left lower sternal border/epigastric region. Worse with deep inspiration. Allergies Allergy/AdvReac Type Severity Reaction Status Date / Time aspirin Allergy Unknown ON Verified 12/22/24 01:57 [facility] Home Medications Medication Instructions Recorded Confirmed Type acetaminophen 325 mg tablet 650 mg PO Q4H PRN PAIN/FEVER 12/22/24 12/22/24 History (Tylenol) cyanocobalamin (vitamin B-12) 1,000 mcg PO DAILY 12/22/24 12/22/24 History 1,000 mcg tablet (Vitamin B-12) folic acid 1 mg tablet 1 mg PO DAILY 12/22/24 12/22/24 History loperamide 2 mg capsule 2 mg PO Q8H PRN Diarrhea 12/22/24 12/22/24 History magnesium hydroxide 400 mg/5 mL 30 ml PO DAILY PRN Constipation 12/22/24 12/22/24 History oral suspension (Milk of Magnesia) mirtazapine 7.5 mg tablet 7.5 mg PO HS 12/22/24 12/22/24 History sennosides 8.6 mg-docusate sodium 1 tab-cap PO 3XWK 12/22/24 12/22/24 History 50 mg tablet (Senexon-S) sertraline 100 mg tablet 100 mg PO DAILY 12/22/24 12/22/24 History sertraline 50 mg tablet 50 mg PO DAILY 12/22/24 12/22/24 History Patient History Social History Smoking Status: Never smoker Hx Alcohol Use: No Hx Substance Use: No Preferred Language: Guyanese Communication Ability: Effective Sap Senior Developer Required: No Current Living Situation: Correction Feels Safe at Home: Yes Assistive Devices: Walker and Wheelchair Review of Systems Review of Systems: All systems reviewed & are unremarkable except as noted in HPI & below Physical Exam Constitutional: WD/WN, vitals as above + thin; no acute distress Neck: normal visual inspection Respiratory: no labored breathing Auscultation: + diminished lung sounds (bases b/l ) Cardiovascular: Rate/Rhythm: regular rate and regular rhythm Heart Sounds: normal S1 and normal S2; no murmur Vessels: no JVD Extremities: no edema Gastrointestinal (Abdomen): normal bowel sounds, soft, nontender, no hepatosplenomegaly Neurologic: PERRL, EOMI, accommodation nl, no face palsy, no dysarthria Psychiatric: A+Ox3, euthymic affect Results & Data Vital Signs (Past 12 Hours) Vital Signs Pulse Pulse Resp BP BP Pulse Ox O2 Del Method 12/22/24 14:20 80 20 156/73 H 90 Room Air 12/22/24 13:47 Room Air 12/22/24 13:11 Room Air 12/22/24 11:32 67 12/22/24 09:45 20 156/73 H 95 Room Air 12/22/24 09:08 Room Air 12/22/24 08:30 137/70 12/22/24 08:30 74 15 94 12/22/24 08:00 135/62 12/22/24 08:00 73 24 93 12/22/24 07:36 74 16 94 12/22/24 07:30 134/63 12/22/24 07:21 76 20 92 12/22/24 07:00 133/63 12/22/24 07:00 133/63 12/22/24 07:00 74 24 94 12/22/24 05:13 72 12/22/24 05:00 72 18 126/61 93 Room Air 12/22/24 04:30 75 18 118/58 L 93 Room Air 12/22/24 04:00 74 18 120/59 L 93 Room Air 12/22/24 03:45 83 18 131/88 93 Room Air 12/22/24 03:12 69 20 91 Room Air 12/22/24 02:30 80 17 118/61 90 Room Air Laboratory Results Cardiac Enzymes 12/22/24 12/22/24 12/22/24 Range/Units 01:17 03:54 10:55 AST 15 (13-39) U/L Troponin I High Sens 5.7 3.8 6.8 (0-20) pg/ml B-Natriuretic Peptide 30 (0-100) pg/ml Coagulation 12/22/24 Range/Units 01:17 PT 10.9 (9.0-12.0) Seconds B-Natriuretic Peptide 30 (0-100) pg/ml CBC 12/22/24 Range/Units 01:17 WBC 3.84 L (4.8-10.8) K/ul RBC 3.51 L (4.70-6.10) M/uL Hgb 10.3 L (14.0-18.0) g/dl Hct 32.0 L (42.0-52.0) % Plt Count 213 (130-400) K/uL Comprehensive Metabolic Panel 12/22/24 Range/Units 01:17 Sodium 136 (136-145) mmol/L Potassium 4.2 (3.5-5.1) mmol/L Chloride 103 (98-107) mmol/L Carbon Dioxide 29 (21-32) mmol/L BUN 15 (6-23) mg/dl Creatinine 1.05 (0.6-1.4) mg/dl Glucose 94 (70-99(Fasting)) mg/dl Calcium 8.5 L (8.6-10.3) mg/dl AST 15 (13-39) U/L ALT 7 (7-52) U/L Alkaline Phosphatase 82 (34-104) U/L Total Protein 7.1 (6.0-8.3) gm/dl Albumin 3.8 (3.4-5.0) gm/dl Intake and Output 12/21/24 12/22/24 12/22/24 22:59 06:59 14:59 Intake Total 100 / 100 1006.25 / 1006.25 Balance 100 / 100 1006.25 / 1006.25 Intake: IV 100 / 100 1006.25 / 1006.25 Ampicillin/Sulbactam Sod 3,000 100 / 100 mg In 100 ml @ 200 mls/hr IV Q6H AMANDA Rx#:[id number] Magnesium Sulfate / D5w 1 gm In 100 / 100 100 ml @ 100 mls/hr IV NOW STA Rx#:[id number] Sodium Chloride 0.9% 1,000 ml @ 906.25 / 906.25 125 mls/hr IV .Q8H AMANDA Rx#: [id number] Other: Weight 53.7 kg 53.7 kg Weight Measurement Method [facility] Patient Weight 04/17/25 06:59 Weight 53.7 kg Diagnostic Findings Telemetry reviewed: NSR, 70's with occ PAC. No concerning arrhythmias. EKG reviewed: NSR with PACs Non specific ST abnormality No acute ischemic changes. Echo report reviewed from admission: Normal LVEF at 55-60% no wall motion abnormalities RV is normal in size and function Mild MR Grade I diastolic dysfunction. small pericardial effusion Chest CT 12/22/24 03:22 IMPRESSION: 1. Mild to moderate right sided pleural effusion (likely loculated) with intrafissural extension with passive subsegmental collapse of right lower lobe is seen. 2. Minimal left sided pleural effusion with passive subsegmental collapse of left lower lobe. 3. Few tiny scattered nodules (2-4 mm sized)are noted involving both lungs- follow up suggested 4. Few right paratracheal and perihilar lymph node are seen. Abdomen/Pelvis CT 12/22/24 09:32 IMPRESSION: 1. No acute findings at the abdomen or pelvis. 2. Very small right basilar pneumothorax, likely ex vacuo as described. Recommend follow-up chest x-ray in the morning. 3. Otherwise as described. Chest X-Ray 12/22/24 13:32 XR chest 1V not portable CLINICAL HISTORY: s/p rt pleural pigtail placement COMPARISON STUDY: 12/22/2024 FINDINGS: Stable mild cardiomegaly with mild pulmonary vascular congestion. Stable hazy opacity at the left base with blunting of the left costophrenic angle. There is an interval small bore pleural catheter at the right base. There is mild residual stranding at the right lung base, improved. There is a faint v ertical possible pleural line laterally at the right lung base, artifact versus trace right basilar pneumothorax. Stable pleural calcification in the apices. IMPRESSION: Artifact versus trace right basilar pneumothorax. If pneumothorax is present, it is likely ex vacuo due to evacuation of the pleural fluid with failure of the abnormal right lung base to completely reexpand. Suggest follow- up chest x-ray in the morning. Medications Administered Current Inpatient Medications Acetaminophen (Acetaminophen 325 Mg Tab) 650 mg PO Q4H PRN PRN Reason: Pain or Fever Stop: 01/21/25 09:31 Last Admin: 12/22/24 11:06 Dose: 650 mg Cyanocobalamin (Cyanocobalamin (B-12) 500 Mcg Tablet) 1,000 mcg PO DAILY [facility] Stop: 01/21/25 09:31 Last Admin: 12/22/24 11:07 Dose: 1,000 mcg Folic Acid (Folic Acid 1 Mg Tab) 1 mg PO DAILY MAANDA Stop: 01/21/25 09:31 Last Admin: 12/22/24 11:08 Dose: 1 mg Heparin Sodium (Porcine) (Heparin Sod 5,000 Unit/0.5 Ml Vial) 5,000 units SQ Q8 AMANDA Stop: 01/21/25 13:59 Last Admin: 12/22/24 13:06 Dose: Not Given Ampicillin Sodium/Sulbactam Sodium (Unasyn) 3,000 mg in 100 mls @ 200 mls/hr IV Q6H [facility] Stop: 12/27/24 09:59 Last Infusion: 12/22/24 11:47 Dose: Infused Magnesium Hydroxide (Magnesium Hydroxide Susp 30 Ml Udc) 30 ml PO DAILY PRN PRN Reason: Constipation Stop: 01/21/25 09:31 Mirtazapine (Mirtazapine Tab 15 Mg Tab) 7.5 mg PO HS [facility] Stop: 01/21/25 20:59 Nitroglycerin (Nitroglycerin Sl 0.4 Mg/Tab Tab) 0.4 mg SL Q5M PRN PRN Reason: Chest Pain Stop: 01/21/25 09:31 Polyethylene Glycol (Polyethylene (Miralax) 17 Gm Pack) 17 gm PO DAILY PRN PRN Reason: Constipation Stop: 01/21/25 09:31 Senna/Docusate Sodium (Docusate Sodium/Senna 50/8.6mg Tab) 1 tab PO MoWeFr@0900 [facility]DA Stop: 01/21/25 09:31 Last Admin: 12/22/24 11:08 Dose: Not Given Sertraline HCl (Sertraline Hcl 100 Mg Tablet) 100 mg PO DAILY [facility] Stop: 01/21/25 09:31 Last Admin: 12/22/24 11:08 Dose: 100 mg Sertraline HCl (Sertraline Hcl 50 Mg Tablet) 50 mg PO DAILY [facility] Stop: 01/21/25 09:31 Last Admin: 12/22/24 11:08 Dose: 50 mg
--- NOTE | 2024-12-22 15:04 | Ultrasound Report ---
ULTRASOUND-GUIDED RIGHT PLEURAL PIGTAIL PLACEMENT CLINICAL HISTORY: Loculated right pleural effusion PROCEDURE: Procedure and risks were explained. Informed consent was obtained. A final timeout was com pleted. The right posterior thorax was prepped and draped in sterile fashion. 1% lidocaine was utiliz ed for skin anesthesia. Utilizing ultrasound guidance, an 18-gauge Chiba needle was advanced into the loculated right pleural effusion. Ultrasound images were obtained. A 0.035 Amplatz wire was introduced through the entry nee dle and exchanged for an 8 Belarusian locking pigtail catheter. 10 mL of straw-colored pleural fluid was removed and sent to the lab. The catheter was sutured to the skin with 2-0 Prolene and placed a 20 cm H2O wall suction. The patient tolerated the procedure well. A chest x-ray will be obtained and vital signs will be monitored postprocedure. IMPRESSION: Ultrasound-guided right pleural pigtail catheter placement as above. Performed, dictated, and signed by Eyad Acosta PA-C; to be co-signed by Dr. Delonte Zuniga. Electronically signed by: Delonte Zuniga M.D. 12/22/2024 4:10 PM
[2024-12-22 16:19] LABS: Total Protein Pleural Fluid 4.1 gm/dl
[2024-12-22 16:55] LABS: Appearance Pleural Fluid Cloudy; Color Pleural Fluid Pink; RBC Pleural Fluid Auto 7000 /uL; Source Pleural Fluid Right Lung; WBC Pleural Fluid Auto 2684 /uL
[2024-12-22] MEDS: MIRTAZAPINE TAB 15 MG TAB PO SCH (20:09)
[2024-12-23 06:35] LABS: Eosinophils # (auto) 0.06 K/uL (0.00-0.50); Eosinophils % (auto) 2.1 %; Hematocrit (blood only) 29.2 % (42.0-52.0); Hemoglobin 9.7 g/dl (14.0-18.0); Immature Granulocytes # (auto) 0.02 K/uL (0.01-0.20); Immature Granulocytes % (auto) 0.7 %; Lymphocytes # (auto) 0.84 K/uL (1.20-3.40); Mean Corpuscular Hgb Conc 33.2 g/dL (32.0-36.0); Mean Corpuscular Volume 90.4 fL (80.0-100.0); Mean Platelet Volume 9.9 fL (9.4-12.4); Monocytes % (auto) 14.3 %; Neutrophils # (auto) 1.48 K/uL (1.40-6.50); Neutrophils % (auto) 52.9 %; Platelet Count 187 K/uL (130-400); RDW Coefficient of Variation 13.3 % (11.5-14.5); RDW Standard Deviation 44.2 fL (36.4-46.3); Red Blood Count 3.23 M/uL (4.70-6.10)
[2024-12-23 07:08] LABS: Basophils, Fluid 2 %; Eosinophils, Fluid 4 %; Lymphocytes, Fluid 79 %; Mono,Macrophage,Mesothelial 10 %; Neutrophils, Fluid 5 %
[2024-12-23 07:25] LABS: Calcium 8.2 mg/dl (8.6-10.3); Magnesium 1.9 mg/dl (1.7-2.4); Potassium 4.2 mmol/L (3.5-5.1)
[2024-12-23 07:31] LABS: BUN Creatinine Ratio 13.3 (10-20); Creatinine Clr Calc Pharmacy 36.4 ml/min
--- NOTE | 2024-12-23 07:37 | XRay Report ---
EXAM: XR chest 1V portable CLINICAL HISTORY: effusion, ptx TECHNIQUE: An X-ray image of the chest is obtained in AP projection. COMPARISON: 12/22/2024. FINDINGS: Interval insertion of right chest tube, Pulmonary Parenchyma: Redemonstration of bilateral more right lower zonal opacity obscuring both costophrenic angles could be due to pleural effusions with bi-basilar atelectasis. Heart and Mediastinum: Stable cardiac size. No mediastinal widening or masses. No hilar or mediastinal lymphadenopathy. Bony Thorax: Bony thorax appears intact without fractures or deformities. Soft Tissues: Soft tissues overlying the chest wall are unremarkable. IMPRESSION: 1. Interval insertion of right chest tube. 2. Redemonstration of bilateral more right lower zonal opacity obscuring both costophrenic angles could be due to pleural effusions with bi-basilar atelectasis. 3. No other interval changes since the last study. Electronically signed by Zenon Barr 12-23-2024 07:36 AM
--- NOTE | 2024-12-23 15:05 | Hospitalist Progress Note ---
Date of Service December 23, 2024 Assessment & Plan (1) Bilateral pleural effusion: Plan: Pigtail chest tube catheter placed on 12/22/2024 (2) Pleuritic chest pain: (3) Iron deficiency anemia: (4) Osteoarthritis: (5) Pneumothorax, right: Plan: Resolved (6) Loculated pleural effusion: Plan Patient 84-year-old gentleman presented with shortness of breath and chest pain presumably due to pleural effusion. Has received relief with drainage and insertion of pigtail catheter. Unclear etiology for pleural effusions at this time, possibly postinfectious. Continue antibiotics Chest tube management per pulmonary Reviewed cardiology consultation, lower suspicion that this is due to cardiac disease Updated son via phone Admission and Anticipated Discharge Date Admission Date: December 22, 2024 Subjective Patient states his pain is controlled. Denies shortness of breath. No chest pain other than where chest tube is out. Physical Exam Physical Exam: Constitutional: Alert HEENT: Mucous membranes moist. Lungs: Decreased breath sounds, crackles at right base CV: S1-S2, regular Abdomen: Soft, nontender, nondistended Extremities: No significant edema Neuro: No focal deficits Psych: Cooperative, normal mood Results & Data Results & Data Vital Signs (Past 12 Hours) Vital Signs Temp Pulse Pulse Resp BP BP Pulse Ox 12/23/24 10:54 36.5 C 78 16 119/57 L 92 12/23/24 09:13 70 12/23/24 07:37 12/23/24 07:33 36.8 C 12/23/24 07:23 73 19 130/55 L 92 12/23/24 03:22 36.5 C 75 16 106/62 97 O2 Del Method 12/23/24 10:54 Room Air 12/23/24 09:13 12/23/24 07:37 Room Air 12/23/24 07:33 12/23/24 07:23 Room Air 12/23/24 03:22 Room Air Diagnostic Findings Reviewed imaging, laboratory and diagnostic studies. Pertinent findings as below. Personally reviewed chest x-ray, persistent haziness right lower lobe, possible effusion, pigtail catheter in place. BMP stable WBCs 2.8 Hemoglobin 9.7 Echocardiogram showed ejection fraction 55 to 60% Pleural fluid studies reviewed, no growth to date in culture, cytology pending
--- NOTE | 2024-12-23 16:51 | Pulmonology Progress Note ---
Date of Service December 23, 2024 Assessment & Plan (1) Loculated pleural effusion: Plan: Patient status post pigtail catheter insertion 12/22/24 and removal 12/23/24. Approximately 150 mL of output. Pleural effusion appears to be a lymphocytic exudate. Cultures negative thus far. Cytology is pending. I requested flow cytometry, but unfortunately there was not enough specimen to run flow cytometry. Should he have recurrence, can consider repeat thoracentesis and flow cytometry at that time. BNP unremarkable. Echocardiogram reviewed with grade 1 diastolic dysfunction and a normal LVEF. Doubtful of CHF. Etiology of pleural effusion is unclear, but malignancy such as CLL mediated effusion remains on the differential. Other possibilities include a parapneumonic effusion related to pneumonia, but no discrete infiltrate noted on CT chest. Out of caution, would recommend completing a 10-day course of antibiotics. Can transition to Augmentin at this time from IV Unasyn. No evidence of pneumothorax on repeat chest x-ray today. Pulmonary to sign off. Call questions. Thank you for the consult. (2) Pleuritic chest pain: Plan: Possibly related to pleural effusion. (3) Pneumothorax, right: Plan: Pneumothorax appeared status post right pigtail catheter placement. Possible pneumo ex vacuo. Plan Pulmonary will continue to follow. Thank you for the consult. Admission and Anticipated Discharge Date Admission Date: December 22, 2024 Subjective Patient feels significantly improved today with less shortness of breath and less chest pain. He denies any fevers, chills or night sweats. His son is at bedside. He had about 100 mL of output since the chest tube was inserted. Review of Systems Review of Systems: All systems reviewed & are unremarkable except as noted in HPI & below Physical Exam Constitutional: WD/WN, vitals as above + thin; no acute distress Neck: normal visual inspection Respiratory: no labored breathing Auscultation: + diminished lung sounds (bases b/l, posterior right pigtail catheter noted clean dry and intact.) Cardiovascular: Rate/Rhythm: regular rate and regular rhythm Heart Sounds: normal S1 and normal S2; no murmur Vessels: no JVD Extremities: no edema Gastrointestinal (Abdomen): normal bowel sounds, soft, nontender, no hepatosplenomegaly Neurologic: PERRL, EOMI, accommodation nl, no face palsy, no dysarthria Psychiatric: A+Ox3, euthymic affect Results & Data Results & Data Vital Signs (Past 12 Hours) Vital Signs Temp Pulse Pulse Resp BP BP Pulse Ox 12/23/24 15:41 81 12/23/24 15:28 36.4 C L 79 18 124/72 12/23/24 10:54 36.5 C 78 16 119/57 L 92 12/23/24 09:13 70 12/23/24 07:37 12/23/24 07:33 36.8 C 12/23/24 07:23 73 19 130/55 L 92 O2 Del Method 12/23/24 15:41 12/23/24 15:28 12/23/24 10:54 Room Air 12/23/24 09:13 12/23/24 07:37 Room Air 12/23/24 07:33 12/23/24 07:23 Room Air PG Care Time/CCT Total # of Minutes Spent Total Time Spent with Patient: Total time spent is greater than 50% in coordination of care (as documented) at patient's floor/unit and/or counseling patient: Coding Level of Care Code 37452 SUB INP/OBS CARE 2/35MIN Diagnoses Loculated pleural effusion J90 Pleuritic chest pain R07.81 Pneumothorax, right J93.9
--- NOTE | 2024-12-23 16:53 | Procedure Note ---
Procedure Note Date of Service December 23, 2024 10 Ukrainian right-sided pigtail catheter removal With the patient's verbal consent and the sons verbal consent, I remove the right-sided pigtail catheter. C-clamp locking mechanism and pigtail was undone. Sterile dressing was removed. Suture was cut and upon exhalation, the pigtail catheter was removed and appeared to be intact. No significant bleeding encountered. Occlusive dressing placed over the chest tube insertion site. Occlusive dressing to be taken off 12[place]24/24. [facility] [place] (Charges) Pulmonary/Thoracic Procedure 1: Pulmonary and Thoracic: 58768 Remove lung catheter Coding CPT Codes Pulmonary/Thoracic - Pulmonary and Thoracic: 68337 Remove lung catheter (P [id number]) Additional Codes Date of Service (PG.[email or web address])
[2024-12-24 07:33] LABS: Basophils # (auto) 0.01 K/uL (0.00-0.20); Basophils % (auto) 0.3 %; Eosinophils # (auto) 0.09 K/uL (0.00-0.50); Eosinophils % (auto) 3.1 %; Hematocrit (blood only) 29.5 % (42.0-52.0); Hemoglobin 9.4 g/dl (14.0-18.0); Immature Granulocytes # (auto) 0.02 K/uL (0.01-0.20); Immature Granulocytes % (auto) 0.7 %; Lymphocytes # (auto) 0.95 K/uL (1.20-3.40); Lymphocytes % (auto) 32.3 %; Mean Corpuscular Hemoglobin 29.1 pg (25.0-34.0); Mean Corpuscular Hgb Conc 31.9 g/dL (32.0-36.0); Mean Corpuscular Volume 91.3 fL (80.0-100.0); Monocytes # (auto) 0.41 K/uL (0.11-0.59); Monocytes % (auto) 13.9 %; Neutrophils # (auto) 1.46 K/uL (1.40-6.50); Neutrophils % (auto) 49.7 %; Platelet Count 182 K/uL (130-400); RDW Coefficient of Variation 13.2 % (11.5-14.5); RDW Standard Deviation 43.9 fL (36.4-46.3); Red Blood Count 3.23 M/uL (4.70-6.10); White Blood Count 2.94 K/ul (4.8-10.8)
[2024-12-24 07:54] LABS: BUN Creatinine Ratio 15.4 (10-20); Calcium 8.3 mg/dl (8.6-10.3); Creatinine Clr Calc Pharmacy 34.5 ml/min; Potassium 4.1 mmol/L (3.5-5.1)
[2024-12-24 09:04] VITALS: RESP 17
[2024-12-24 11:50] VITALS: BP 136/60; TEMP 98.8; O2SAT 92
--- NOTE | 2024-12-24 13:00 | Discharge Summary ---
Discharge Summary Date of Service December 24, 2024 Principal Dx & Hospital Course #1 = Principal Diagnosis (1) Bilateral pleural effusion: Pigtail chest tube catheter placed on 12/22/2024 (2) Pleuritic chest pain: (3) Iron deficiency anemia: (4) Osteoarthritis: (5) Pneumothorax, right: Resolved (6) Loculated pleural effusion: Plan Patient 84-year-old gentleman who presented to the ED with complaints of chest pain and shortness of breath. In the emergency room noted to have bilateral pleural effusions. Patient was admitted to the hospital. Pulmonary consultation was obtained. Recommended thoracentesis. IR was consulted and performed right thoracentesis with pigtail catheter kept in place. Patient did have a slight pneumothorax and vacuo postprocedure which resolved by the following day. Chest tube was removed. With the thoracentesis patient's shortness of breath and chest pain completely resolved. Cytology and cultures of the pleural fluid was unremarkable. Unclear the etiology of the pleural effusions. Could have been a parapneumonic effusion and patient was empirically treated with antibiotics. Cardiology consultation was noted. Echocardiogram showed normal ejection fraction. Effusions did not seem related to heart failure. On the day of discharge patient was on room air. No chest pain or shortness of breath. Back to his baseline functioning. Could return to [facility] to complete a course of antibiotics and follow-up with providers outpatient. Updated patient's son on and agreeable to plan for discharge. Notes For Next Care Provider Follow-up with pulmonary Complete course of antibiotics Medication Changes From Visit Augmentin for presumed parapneumonic effusion Admission HPI Per Admitting Provider 84-year-old male with past medical history significant for depression who lives at [facility] and is wheelchair-bound for several years was brought in because of complaint of chest pain and shortness of breath. Currently patient seems poor historian. He says he has pain in the abdomen. Says it is hurting to speak. Complains of shortness of breath. Complains of pain in the right big toe. Could tell his name. Knows that he is in the [place]. Could not tell current month. Could tell his age. Patient states he is thirsty and wants to drink. But difficult to get history from the patient as saying that it is hurting to talk and could not get much history from the patient. Son left to home but able to call him. As per son patient complaining of chest pain for last couple of days. And also shortness of breath. No fevers. No nausea. Normal bowel and bladder movements. As per son no history of heart disease. No history of kidney disease. No history of high blood pressure or diabetes. No dementia as per son.Currently patient hemodynamics are okay. Past medical history. As mentioned above Past surgical history. None as per son. Social history. No smoking. History drink alcohol in the past but currently drinks once a week. Family history. Mother had colon cancer. Uncle had prostate cancer. Admission Exam Per Admitting Provider See H&P Discharge Exam Constitutional: Alert, nontoxic HEENT: Mucous membranes moist. Lungs: Decreased breath sounds, improved airflow right base CV: S1-S2, regular Abdomen: Soft, nontender, nondistended Extremities: No significant edema Neuro: No focal deficits, generally weak Psych: Cooperative, normal mood Updated Medication List Medication Instructions Recorded Confirmed Type acetaminophen 325 mg tablet 650 mg PO Q4H PRN PAIN/FEVER 12/22/24 12/22/24 His tory (Tylenol) cyanocobalamin (vitamin B-12) 1,000 mcg PO DAILY 12/22/24 12/22/24 History 1,000 mcg tablet (Vitamin B-12) folic acid 1 mg tablet 1 mg PO DAILY 12/22/24 12/22/24 History loperamide 2 mg capsule 2 mg PO Q8H PRN Diarrhea 12/22/24 12/22/24 History magnesium hydroxide 400 mg/5 mL 30 ml PO DAILY PRN Constipation 12/22/24 12/22/24 History oral suspension (Milk of Magnesia) mirtazapine 7.5 mg tablet 7.5 mg PO HS 12/22/24 12/22/24 History sennosides 8.6 mg-docusate sodium 1 tab-cap PO 3XWK 12/22/24 12/22/24 History 50 mg tablet (Senexon-S) sertraline 100 mg tablet 100 mg PO DAILY 12/22/24 12/22/24 History sertraline 50 mg tablet 50 mg PO DAILY 12/22/24 12/22/24 History amoxicillin 875 mg-potassium 1 tab PO BID #14 tabs 12/24/24 Rx clavulanate 125 mg tablet ferrous sulfate 325 mg (65 mg 325 mg PO DAILY #30 tabs 12/24/24 Rx iron) tablet (Feosol) Hospital Stay Data Consultations 12/22/24 05:58 ED Decision to Admit Stat 12/22/24 09:32 Consult Cardiology Routine Consult Pulmonology Routine Diagnostic Imagining Performed 12/22/24 03:22 CT chest diagnostic w con Stat 12/22/24 09:32 CT Abd and Pelvis [CT abd pelvis IV con only] Urgent 12/22/24 12:46 IR thoracentesis w/tube US Routine Reviewed imaging, laboratory and diagnostic studies. Pertinent findings as below. Pleural fluid cytology negative for malignant cells Pleural fluid culture no growth to date Echocardiogram shows ejection fraction 55 to 60%, grade 1 diastolic dysfunction WBCs 2.9 Hemoglobin 9.4 Platelets of 182 Electrolytes within normal range Creatinine 1.17 Iron 39 TIBC 258 Transferrin 184 Transferrin percent saturation 15 Vitamin B12 1436 Folate greater than 22.3 Procalcitonin 0.02 TSH 3.14 Pending Results Patient Have Any Pending Studies at Discharge: Yes Discharge Instructions Given to Patient (Per Discharging Provider) Complete course of oral antibiotics Encourage activity as tolerated Home Health Attestation I certify that this patient is under my care and that I, or a physicians patient support assistant working with me, had a face to-face encounter that meets the home health [id number] encounter requirements with this patient. The encounter with the patient was in whole, or in part, for the following medical condition, which is the primary reason for home health care (list medical condition): I certify that, based on my findings, the following services are medically necessary home health services: My clinical findings support the need for the above services because: Further, I certify that my clinical findings support that this patient is homebound (i.e. absences from home require considerable and taxing effort and are for medical reasons or [employer] services or infrequently or of short duration when for other reasons) because: Certification for Home Health Services: Based on the above findings, I certify that this patient is confined to the home and needs intermittent group home care, physical therapy and/or speech therapy or continues to need occupational therapy. The patient is under my care, and I have initiated the establishment of the plan of care. This patient will be followed by a physician who will periodically review the plan of care. Total Time Total Time Spent Total Time Spent (In Minutes): 43
[2024-12-24 13:04] VITALS: PULSE 80
== END 2024-12-24 16:48 | disposition home or self-care (01) | DRG 186 ==
LOC: ED 01:11 → SUATTDRO 05:59 → EDINP 05:59 → 2E 09:26